=== PATIENT | female | born 1950 | race Caucasian/White ===

== ENCOUNTER 2020-12-30 09:01 | Emergency (ER) | payer MEDICARE, OTHER ==
[~2020-12-30 09:01] MED LIST: CALCIUM-MAGNES1 EAC5 PO; EDLUAR10 MG PO; LASIX20 MG PO; MAVYRET 100-401 EACH PO; METFORMIN HCL500 MG PO; NORVASC5 MG PO; PROTONIX 40MG T40 MG PO; SYNTHROID125 MCG PO; TOPROL XL 50 MG50 MG PO; ULTRAM50 MG PO; VOLTAREN **OUT75 MG PO
[2020-12-30 10:20] LABS: BASOPHIL 0.3 % (0-2); EOSINOPHIL 4.5 % (0-7); HCT 40.1 % (37.0-47.0); HGB 13.7 g/dl (12.5-16.0); LYMPHOCYTE 10.4 % (15-48); MCH 31.6 pg (25.0-31.0); MCHC 34.2 g/dL (32.0-36.0); MCV 92.4 fL (78.0-100.0); MONOCYTE 5.2 % (0-12); MPV 9.2 fL (6.0-9.5); NEUTROPHIL 79.1 % (41-80); NRBC 0; PLT 303 K/uL (150-400); RBC 4.34 M/uL (4.20-5.40); RDW 13.5 % (11.5-14.0)
[2020-12-30 10:42] LABS: INR 1.08 (0.9-1.2); PROTHROMBIN TIME 13.3 SECONDS (11.4-13.6); PTT 31.7 SECONDS (22.2-34.7)
[2020-12-30 10:44] LABS: D-DIMER 0.42 ug/mLFEU (0.00-0.41)
[2020-12-30 10:46] LABS: ALBUMIN 3.8 g/dL (3.4-5.0); BILIRUBIN - TOTAL 0.4 mg/dL (0.2-1.0); BUN/CREAT RATIO (CALC) 25.7 RATIO; CREATININE 0.7 mg/dL (0.51-0.95); GLOBULIN (CALCULATION) 3.8 g/dL; POTASSIUM 4.7 mmol/L (3.5-5.1); TOTAL PROTEIN 7.6 g/dL (6.4-8.2)
== END 2020-12-30 12:13 | disposition home or self-care (01) ==
LOC: FER 09:01
PROVIDERS: Emergency Medicine
DX: M70.52 Other bursitis of knee, left knee (principal); E11.9 Type 2 diabetes mellitus without complications
CPT/HCPCS: 36415; 73560; 80053; 82550; 83880; 84145; 85025; 85379; 85610; 85730; 93971